=== PATIENT | female | born 1940 | race Two or more races ===

== ENCOUNTER 2017-09-06 22:43 | Emergency (ER) | payer OTHER ==
[~2017-09-06] VITALS: Ht 157.5 cm; Wt 73.5 kg
[2017-09-06 23:14] LABS: Basophils # (auto) 0.1 uL; Basophils % (auto) 0.9 % (0.0-2.0); Eosinophils # (auto) 0.4 uL; Eosinophils % (auto) 2.8 % (0.0-7.0); Hematocrit 41.3 % (36.0-46.0); Hemoglobin 13.5 g/dL (12.2-16.2); Lymphocytes # (auto) 4.2 uL; Lymphocytes % (auto) 31.6 % (10.0-50.0); Mean Corpuscular Hemoglobin 28.8 pg (28.0-32.0); Mean Corpuscular Hgb Conc. 32.7 g/dL (32.0-36.0); Monocytes # (auto) 0.9 uL; Monocytes % (auto) 6.7 % (0.0-12.0); Neutrophils # (auto) 7.7 uL; Nucleated Red Blood Cells % 0.1 %; Platelet Count (auto) 292 10^3/uL (140-450); Red Blood Cells 4.69 10^6/uL (4.0-5.20); Red Cell Distribution Width 13.8 % (11.8-14.3); White Blood Cell 13.3 10^3/uL (4.4-10.8)
[2017-09-06] MEDS ORDERED: METOPROLOL TARTRATE 25 MG TAB PO ONE (23:15)
[2017-09-06] MEDS ORDERED: LORazepam 0.5 MG TAB PO ONE (23:15)
[2017-09-06 23:29] LABS: INR 0.93 (0.9-1.15); Partial Thromboplastin Time 25.3 sec (22.64-33.71); Prothrombin Time 10.1 sec (9.37-12.3)
[2017-09-06 23:32] LABS: Albumin 4.3 g/dL (3.4-5.0); Anion Gap 7 (5-15); Blood Urea Nitrogen 9 mg/dL (7-18); Calcium 9.8 mg/dL (8.5-10.1); Carbon Dioxide 29 mmol/L (21-32); Chloride 100 mmol/L (98-107); GFR African American 124 mL/min; GFR Non-African American 103 mL/min; Glucose 123 mg/dL (74-106); Potassium 3.9 mmol/L (3.5-5.1); Sodium 136 mmol/L (136-145)
[2017-09-06 23:40] LABS: Alanine Aminotransferase 89 U/L (13-56); Alkaline Phosphatase 96 U/L (45-117); Aspartate Aminotransferase 52 U/L (15-37); Bilirubin, Total 0.3 mg/dL (0.2-1.0); Total Protein 8.2 g/dL (6.4-8.2)
[2017-09-07 00:21] LABS: Urine WBC None Seen /hpf (0 - 5)
[2017-09-07 00:31] VITALS: BP 139/78
[2017-09-07 00:44] LABS: Urine Bacteria NONE SEEN /hpf (None Seen); Urine Blood Negative /uL (Negative); Urine Specific Gravity 1.003 (1.001-1.035)
== END 2017-09-07 01:21 | disposition home or self-care (01) ==
LOC: ER 22:47
DX: I10 Essential (primary) hypertension (principal); F41.9 Anxiety disorder, unspecified; R51 Headache; E11.9 Type 2 diabetes mellitus without complications; Z88.6 Allergy status to analgesic agent
CPT/HCPCS: 36415; 71045; 80053; 81001; 83880; 84484; 85025; 85610; 85730; 93005

== ENCOUNTER 2019-02-16 19:17 | Emergency (ER) | payer OTHER ==
[~2019-02-16] VITALS: Ht 157.5 cm; Wt 73.0 kg
[2019-02-16 19:42] VITALS: BP 185/84
[2019-02-16] MEDS ORDERED: cloNIDine HCL 0.1 MG TAB PO ONE (20:00)
[2019-02-16 20:15] LABS: Basophils # (auto) 0.1 uL; Basophils % (auto) 0.9 % (0.0-2.0); Eosinophils # (auto) 0.2 uL; Eosinophils % (auto) 2.1 % (0.0-7.0); Hematocrit 42.6 % (36.0-46.0); Hemoglobin 14.1 g/dL (12.2-16.2); Lymphocytes % (auto) 35.2 % (10.0-50.0); Mean Corpuscular Hemoglobin 29.4 pg (28.0-32.0); Mean Corpuscular Hgb Conc. 33.1 g/dL (32.0-36.0); Mean Corpuscular Volume 88.7 fL (80.0-100.0); Monocytes # (auto) 0.7 uL; Monocytes % (auto) 5.8 % (0.0-12.0); Neutrophils # (auto) 6.4 uL; Nucleated Red Blood Cells % 0.1 %; Platelet Count (auto) 298 10^3/uL (140-450); Red Cell Distribution Width 13.1 % (11.8-14.3); White Blood Cell 11.4 10^3/uL (4.4-10.8)
[2019-02-16 20:30] LABS: INR < 0.93 (0.9-1.15); Partial Thromboplastin Time 25.7 sec (23.64-32.05)
[2019-02-16 20:32] LABS: Albumin 4.7 g/dL (3.4-5.0); Anion Gap 12 (5-15); BUN/Creatinine Ratio 12.5; Blood Urea Nitrogen 8 mg/dL (7-18); Calcium 10.4 mg/dL (8.5-10.1); Carbon Dioxide 25 mmol/L (21-32); Chloride 99 mmol/L (98-107); GFR African American 115 mL/min; GFR Non-African American 95 mL/min; Glucose 123 mg/dL (74-106); Sodium 136 mmol/L (136-145)
[2019-02-16 20:37] LABS: Alanine Aminotransferase 73 U/L (13-56); Alkaline Phosphatase 101 U/L (45-117); Aspartate Aminotransferase 37 U/L (15-37); Bilirubin, Total 0.3 mg/dL (0.2-1.0); Total Protein 8.3 g/dL (6.4-8.2)
[2019-02-16 20:45] LABS: Urine Bacteria NONE SEEN /hpf (None Seen); Urine Blood Negative /uL (Negative); Urine Specific Gravity 1.002 (1.001-1.035); Urine WBC <1 /hpf (0 - 5)
== END 2019-02-16 20:36 | disposition left against medical advice (07) ==
LOC: ER 19:20
DX: R07.9 Chest pain, unspecified (principal); Z53.21 Procedure and treatment not carried out due to patient leaving prior to being seen by health care provider
CPT/HCPCS: 36415; 71046; 80053; 81001; 83735; 83880; 84484; 85025; 85610; 85730; 93005

== ENCOUNTER 2019-09-20 16:08 | Emergency (ER) | payer OTHER ==
[~2019-09-20] VITALS: Ht 157.5 cm; Wt 73.0 kg
[2019-09-20] MEDS ORDERED: SODIUM CHLORIDE 0.9% 500 ML IV ONE (17:06)
[2019-09-20] MEDS ORDERED: ONDANSETRON HCL 4 MG/2 ML VIAL IV ONE ×2 (17:15→17:30)
[2019-09-20 17:27] LABS: Urine Bacteria NONE SEEN /hpf (None Seen); Urine Blood Negative /uL (Negative); Urine Specific Gravity 1.005 (1.001-1.035); Urine WBC 1 /hpf (0 - 5)
[2019-09-20] MEDS ORDERED: MORPHINE SULF INJ 2 MG/ML SYRINGE 1ML IV ONE (17:30)
[2019-09-20 17:39] LABS: Basophils # (auto) 0.1 10 ^3/uL (0-0.2); Basophils % (auto) 0.8 % (0.0-2.0); Eosinophils # (auto) 0.1 10 ^3/uL (0-0.8); Eosinophils % (auto) 0.9 % (0.0-7.0); Hematocrit 39.2 % (36.0-46.0); Hemoglobin 13.4 g/dL (12.2-16.2); Lymphocytes # (auto) 2.4 10 ^3/uL (0.4-5.4); Lymphocytes % (auto) 26.8 % (10.0-50.0); Mean Corpuscular Hemoglobin 29.9 pg (28.0-32.0); Mean Corpuscular Hgb Conc. 34.2 g/dL (32.0-36.0); Mean Corpuscular Volume 87.5 fL (80.0-100.0); Monocytes # (auto) 0.4 10 ^3/uL (0-1.3); Monocytes % (auto) 4.3 % (0.0-12.0); Neutrophils # (auto) 5.9 10 ^3/uL (1.6-8.6); Neutrophils % (auto) 67.2 % (37.0-80.0); Platelet Count (auto) 268 10^3/uL (140-450); Red Blood Cells 4.48 10^6/uL (4.0-5.20); Red Cell Distribution Width 13.8 % (11.8-14.3); White Blood Cell 8.8 10^3/uL (4.4-10.8)
[2019-09-20 17:59] LABS: Anion Gap 7 (5-15); Blood Urea Nitrogen 7 mg/dL (7-18); Calcium 9.2 mg/dL (8.5-10.1); Carbon Dioxide 25 mmol/L (21-32); Chloride 100 mmol/L (98-107); Glucose 116 mg/dL (74-106); Potassium 4.1 mmol/L (3.5-5.1); Sodium 132 mmol/L (136-145)
[2019-09-20 18:06] LABS: Alanine Aminotransferase 84 U/L (13-56); Alkaline Phosphatase 102 U/L (45-117); Aspartate Aminotransferase 77 U/L (15-37); BUN/Creatinine Ratio 10.9; Bilirubin, Total 0.3 mg/dL (0.2-1.0); GFR African American 115 mL/min; GFR Non-African American 95 mL/min; Total Protein 7.7 g/dL (6.4-8.2)
[2019-09-20 20:49] VITALS: BP 145/68
[2019-09-20] MEDS ORDERED: cefTRIAXone 1GM/50ML D5W 50 ML IV ONE (22:30)
== END 2019-09-20 23:02 | disposition home or self-care (01) ==
LOC: ER 16:08 → EDBD 16:08 → ER 23:02
DX: R53.1 Weakness (principal); R05 Cough; R07.0 Pain in throat; R11.0 Nausea; J45.909 Unspecified asthma, uncomplicated; E11.9 Type 2 diabetes mellitus without complications; I10 Essential (primary) hypertension
CPT/HCPCS: 36415; 70450; 71045; 74176; 80053; 81001; 83735; 84484; 85025; 93005; 96365; 96375; 99285; J0696; J2270; J2405; J7040